=== PATIENT | male | born 1980 | race Two or more races ===

== ENCOUNTER 2018-12-14 14:02 | Outpatient (CLI) | payer OTHER | END 2018-12-14 14:36 | disposition home or self-care (01) | LOC: RAD 14:02 | DX: M17.11 Unilateral primary osteoarthritis, right knee (principal); M25.571 Pain in right ankle and joints of right foot ==

== ENCOUNTER 2019-08-18 07:34 | Outpatient (CLI) | payer OTHER | END 2019-08-18 07:40 | disposition home or self-care (01) | LOC: LAB 07:34 | DX: R53.81 Other malaise (principal) ==

== ENCOUNTER 2020-03-07 07:32 | Outpatient (CLI) | payer OTHER | END 2020-03-07 15:00 | disposition home or self-care (01) | LOC: LAB 07:32 | PROVIDERS: ATTEND Specialist | DX: R53.81 Other malaise (principal) ==

== ENCOUNTER 2020-03-29 14:30 | Outpatient (CLI) | payer OTHER ==
[2020-03-29] MEDS ORDERED: FLONASE16 GM NASAL (15:10)
[2020-03-29] MEDS ORDERED: ZYRTEC10 MG PO (15:11)
[2020-03-29] MEDS ORDERED: NEILMED SINUS1 EAC1 NASAL (15:11)
[2020-03-29] MEDS ORDERED: SINGULAIR 10MG10 MG PO (15:11)
== END 2020-03-30 09:12 | disposition home or self-care (01) ==
LOC: OFIC 805 14:30
PROVIDERS: ATTEND Otolaryngology
DX: J32.8 Other chronic sinusitis (principal); H74.8X1 Other specified disorders of right middle ear and mastoid; J30.89 Other allergic rhinitis; G47.33 Obstructive sleep apnea (adult) (pediatric); J35.2 Hypertrophy of adenoids; R09.81 Nasal congestion

== ENCOUNTER 2020-04-11 07:40 | Outpatient (CLI) | payer OTHER ==
[~2020-04-11 07:40] MED LIST: FLONASE16 GM NASAL; NEILMED SINUS1 EAC1 NASAL; SINGULAIR 10MG10 MG PO; ZYRTEC10 MG PO
== END 2020-04-11 07:48 | disposition home or self-care (01) ==
LOC: LAB 07:40
DX: Z20.828 Contact with and (suspected) exposure to other viral communicable diseases (principal)

== ENCOUNTER 2020-06-13 06:38 | Outpatient (CLI) | payer OTHER | END 2020-06-13 15:00 | disposition home or self-care (01) | LOC: CERTIFICAD 06:38 | PROVIDERS: ATTEND General Practice | DX: Z02.79 Encounter for issue of other medical certificate (principal) ==

== ENCOUNTER 2020-06-13 14:31 | Outpatient (CLI) | payer OTHER | END 2020-06-13 14:36 | disposition home or self-care (01) | LOC: RAD 14:31 | PROVIDERS: ATTEND General Practice | DX: R05 Cough (principal) ==

== ENCOUNTER 2020-06-19 13:22 | Outpatient (CLI) | payer OTHER | END 2020-06-19 13:23 | disposition home or self-care (01) | LOC: PPH VACUNA 13:22 | DX: Z23 Encounter for immunization (principal) ==

== ENCOUNTER 2020-06-20 14:32 | Outpatient (CLI) | payer OTHER | END 2020-06-20 14:42 | disposition home or self-care (01) | LOC: LAB 14:32 | DX: Z20.828 Contact with and (suspected) exposure to other viral communicable diseases (principal) ==

== ENCOUNTER 2020-07-13 14:55 | Outpatient (CLI) | payer OTHER | END 2020-07-13 16:15 | disposition home or self-care (01) | LOC: LAB 14:55 | PROVIDERS: ATTEND Surgery | DX: Z03.818 Encounter for observation for suspected exposure to other biological agents ruled out (principal); R05 Cough; R50.9 Fever, unspecified ==

== ENCOUNTER 2020-07-27 07:37 | Outpatient (CLI) | payer OTHER | END 2020-07-27 07:40 | disposition home or self-care (01) | LOC: LAB 07:37 | PROVIDERS: ATTEND Surgery | DX: R05 Cough (principal); Z03.818 Encounter for observation for suspected exposure to other biological agents ruled out; R50.9 Fever, unspecified; R06.1 Stridor ==

== ENCOUNTER → 2020-08-13 08:15 | Outpatient (CLI) | payer OTHER | END | disposition home or self-care (01) | LOC: LAB 08:15 | PROVIDERS: ATTEND Surgery | DX: R05 Cough (principal); R50.9 Fever, unspecified; Z03.818 Encounter for observation for suspected exposure to other biological agents ruled out ==

== ENCOUNTER → 2020-09-03 15:36 | Outpatient (CLI) | payer OTHER | END | disposition home or self-care (01) | LOC: LAB 15:36 | PROVIDERS: ATTEND Surgery | DX: R05 Cough (principal); Z03.818 Encounter for observation for suspected exposure to other biological agents ruled out; R50.9 Fever, unspecified ==

== ENCOUNTER 2020-09-18 13:46 | Outpatient (CLI) | payer OTHER | END 2020-09-18 13:55 | disposition home or self-care (01) | LOC: LAB 13:46 | PROVIDERS: ATTEND Surgery | DX: R05 Cough (principal); Z03.818 Encounter for observation for suspected exposure to other biological agents ruled out; R50.9 Fever, unspecified ==

== ENCOUNTER 2020-11-15 07:10 | Outpatient (CLI) | payer OTHER | END 2020-11-15 07:11 | disposition home or self-care (01) | LOC: LAB 07:10 | DX: I10 Essential (primary) hypertension (principal); N39.0 Urinary tract infection, site not specified; E78.2 Mixed hyperlipidemia; E03.8 Other specified hypothyroidism; Z79.01 Long term (current) use of anticoagulants; N41.8 Other inflammatory diseases of prostate ==

== ENCOUNTER 2020-12-26 06:39 | Outpatient (CLI) | payer OTHER | END 2020-12-26 06:48 | disposition home or self-care (01) | LOC: LAB 06:39 | PROVIDERS: ATTEND General Practice | DX: N39.0 Urinary tract infection, site not specified (principal) ==

== ENCOUNTER 2021-04-12 06:15 | Outpatient (CLI) | payer OTHER | END 2021-04-12 06:27 | disposition home or self-care (01) | LOC: LAB 06:15 | PROVIDERS: ATTEND General Practice | DX: N41.8 Other inflammatory diseases of prostate (principal); D64.89 Other specified anemias; E53.8 Deficiency of other specified B group vitamins; N39.0 Urinary tract infection, site not specified; E03.8 Other specified hypothyroidism; Z79.01 Long term (current) use of anticoagulants; E78.2 Mixed hyperlipidemia; I10 Essential (primary) hypertension ==

== ENCOUNTER 2021-07-01 08:00 | Outpatient (CLI) | payer OTHER | END 2021-07-01 08:30 | disposition home or self-care (01) | LOC: PPH VACUNA 08:00 | PROVIDERS: ATTEND Emergency Medicine Pediatric Emergency Medicine | DX: Z23 Encounter for immunization (principal) ==

== ENCOUNTER 2021-07-03 07:25 | Outpatient (CLI) | payer OTHER | END 2021-07-03 08:18 | disposition home or self-care (01) | LOC: SONOGRAMA 07:25 | DX: Q44.6 Cystic disease of liver (principal); R10.84 Generalized abdominal pain ==

== ENCOUNTER 2021-07-10 14:20 | Outpatient (CLI) | payer OTHER | END 2021-07-10 14:36 | disposition home or self-care (01) | LOC: LAB 14:20 | DX: I10 Essential (primary) hypertension (principal); E78.2 Mixed hyperlipidemia ==

== ENCOUNTER 2021-11-20 06:40 | Outpatient (CLI) | payer OTHER | END 2021-11-20 14:35 | disposition home or self-care (01) | LOC: LAB 06:40 | DX: N39.0 Urinary tract infection, site not specified (principal); I10 Essential (primary) hypertension; E78.2 Mixed hyperlipidemia; E03.9 Hypothyroidism, unspecified; Z79.01 Long term (current) use of anticoagulants; N41.9 Inflammatory disease of prostate, unspecified; E11.9 Type 2 diabetes mellitus without complications ==

== ENCOUNTER 2022-03-11 06:44 | Outpatient (CLI) | payer OTHER | END 2022-03-11 06:45 | disposition home or self-care (01) | LOC: LAB 06:44 | DX: E03.9 Hypothyroidism, unspecified (principal); Z79.01 Long term (current) use of anticoagulants; D64.9 Anemia, unspecified; N39.0 Urinary tract infection, site not specified; I10 Essential (primary) hypertension; E11.9 Type 2 diabetes mellitus without complications; N41.9 Inflammatory disease of prostate, unspecified; E78.2 Mixed hyperlipidemia ==

== ENCOUNTER → 2022-06-18 | Outpatient (CLI) | payer OTHER | END | disposition home or self-care (01) | LOC: PPH VACUNA 14:31 | PROVIDERS: ATTEND Emergency Medicine Pediatric Emergency Medicine | DX: Z23 Encounter for immunization (principal) ==

== ENCOUNTER 2022-07-04 07:31 | Outpatient (CLI) | payer OTHER | END 2022-07-04 07:32 | disposition home or self-care (01) | LOC: LAB 07:31 | DX: I10 Essential (primary) hypertension (principal); D64.9 Anemia, unspecified; E11.9 Type 2 diabetes mellitus without complications; E78.2 Mixed hyperlipidemia; E03.9 Hypothyroidism, unspecified; Z79.01 Long term (current) use of anticoagulants; N41.9 Inflammatory disease of prostate, unspecified ==

== ENCOUNTER → 2022-10-22 06:34 | Outpatient (CLI) | payer OTHER | END | disposition home or self-care (01) | LOC: LAB 06:34 | DX: N39.0 Urinary tract infection, site not specified (principal); E11.9 Type 2 diabetes mellitus without complications; I10 Essential (primary) hypertension; D64.9 Anemia, unspecified; N42.9 Disorder of prostate, unspecified; E78.2 Mixed hyperlipidemia; E03.9 Hypothyroidism, unspecified; E29.1 Testicular hypofunction ==

== ENCOUNTER 2023-04-01 06:36 | Outpatient (CLI) | payer OTHER | END 2023-04-01 14:36 | disposition home or self-care (01) | LOC: LAB 06:36 | DX: E11.9 Type 2 diabetes mellitus without complications (principal); I10 Essential (primary) hypertension; D64.9 Anemia, unspecified; N41.9 Inflammatory disease of prostate, unspecified; E78.2 Mixed hyperlipidemia; E03.9 Hypothyroidism, unspecified ==